=== PATIENT | male | born 1985 | race Caucasian/White ===

== ENCOUNTER 2023-07-26 08:52 | Outpatient (CLI) | payer OTHER ==
--- NOTE | 2023-07-26 10:20 | Sleep Patient Instructions ---
Sleep Center Visit Summary - Patient Visit Information Reason for Visit: Initial consult for evaluation of sleep disordered breathing and other sleep issues. - Patient Instructions Instructions Attached: Sleep Study Home Monitor Additional Instructions: You will be completing a sleep study, either an in-lab polysomnography (PSG) or home sleep study (HST). You will follow-up in the sleep care office after the sleep study is completed to hear the results and talk about therapy, if needed. You will be called by our office staff to schedule this appointment, but you may contact us with any questions. - Clinic Information Contact: [facility] [address] [place] [address] [email or web address] T: [phone]
--- NOTE | 2023-07-26 10:22 | SLEEP CARE CONSULTATION ---
Information from patient questionnaire entered by Bree He. I have reviewed and concur with the information entered by Bree He. This document represents the service I personally performed and the decisions made by me, Ryann Lennon ARNP. History of Present Illness Service Date and Time: 07/26/2023 0852 Reason for Visit: New patient Chief Complaint: reports: Unrefreshed sleep, Observed pauses in breathing Date of Onset: 5YRS Usual bedtime: 2030 Time it takes to fall asleep: 30MINS Snores at night: Yes Observed to quit breathing while asleep: Yes Number of times waking at night: 0 WAKES ME Toss, Turn, or Twitch while sleeping: Yes Recalls having dreams: No Usually gets out of bed at: 0715 Feels refreshed in the morning: No Morning headache: No Sleepy or fatigued during the day: Yes Ever fallen asleep while driving: No Takes day naps: No Dreams during day naps: No Prior sleep studies: No Additional HPI information: I had the pleasure of seeing PAULO MOULTON today regarding the possibility of him having a sleep disorder. His current complaints are unrefreshed sleep and observed pauses in breathing. He has trouble sleep since a teenager. He has a hard time getting to sleep and staying asleep. He did use sleeping aides then but weaned off of them. In the last 7 or so years his snoring is getting worse and he is also gasping for air. His is waking up frequently at night worried about his breathing and seeing him stop breathing. He tried a mouth appliance for snoring but he salivated a lot and then the device would be out of his mouth by morning. He feels pressure in his throat when laying on his back. The patient tells me that he normally goes to bed around 8:30 pm, and it takes him approximately 30 minutes to 3 hours to fall asleep. He and his are "hanging out" and watching TV or reading. He has been told that he snores loudly and irregularly at night. He has been observed to stop breathing in his sleep. His bed partner can still sleep in the same bed but infrequently has slept sep arately in the past. He tries to let her go to sleep before he goes to sleep. He can recall waking up on the average of 0 times during the night. Most of the time he wakes up because his is waking him up. He has not awakened for his own snoring, choking, and having to gasp for air. There is a lot of tossing and turning in his sleep. Generally there is no recollection of dreams. He usually wakes up at 0715 and does not feel refreshed. He usually does occasionally have a morning headache but it goes in cycles. During the day he complains of feeling sleepy and fatigued. He has never fallen asleep while driving nor has any accident due to sleepiness. He usually does not take naps during the day. There is somniloquy (sleep talking) but no somnambulism (sleep walking). He denies having impaired concentration during the day. 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 Patient is and lives in [place]. Have you smoked in the past 12 months: No Alcohol use: Yes Alcohol amount and frequency: NOT MUCH EVERY COUPLE WEEKS Caffeine use: Yes Caffeine amount and frequency: A FEW DAILY Family History Family history of sleep disordered breathing: Yes Family Hx Sleep Apnea: Mother: Snoring, Father: Snoring Allergies and Home Medications Known drug allergies: No Drug allergies reviewed: Yes Home medication list reviewed: Yes (none) Allergy and home medication list: Allergies No Known Drug Allergies Allergy (Verified 07/26/23 09:11) Home Medications No Known Home Medications 07/26/23 [History] Review of Systems Weight gain over past 5 years: 30 Weight loss over past 5 years: 10 Cardiovascular: denies: high blood pressure Neurological: reports: headaches, head trauma (concussion 20 yrs old, no deficits) Psychiatric: denies: anxiety, depression Ear/Nose/Throat: reports: wisdom teeth removed. denies: injury to nose, tonsillectomy Endocrine: reports: sluggishness Musculoskeletal: reports: muscle pain or cramping Immunologic: reports: sneezing Physical Exam Vital signs obtained and entered by: BREE Montiel MA Blood Pressure: 162/96 (right arm) Cuff size: long Heart Rate: 57 O2 Saturation: 100 Height: 6 ft Weight: 248 lb Body Mass Index: 33.6 BMI Classification: Obese Neck circumference: 16.75 Mouth and throat: narrow oropharynx Soft palate: long Hard palate: normal Uvula: normal Uvula visualization: 100% Mallampati Class I Tongue: enlarged in size with teeth youngblood on lateral edges Tonsils: 2+ Neck: normal w/o lymphadenopathy or thyromegaly Heart: regular rate and rhythm Lungs: clear bilaterally Impression and Plan 1. Suspected Obstructive Sleep Apnea-Hypopnea Syndrome, as suggested by a history of loud and irregular snoring, observed cessation of breath while asleep, gasping or choking in sleep, morning headache, unrefreshed sleep. Narrow oropharynx and obesity are common predisposing factors for obstructive sleep apnea-hypopnea syndrome. I recommend proceeding to polysomnography to confirm the diagnosis and to assess severity. If the patient has significant sleep disordered breathing, a manual CPAP titration study will also be performed to find the optimal treatment pressure. I informed the patient of what the sleep studies involve and after some discussion, obtained agreement to proceed. The pathophysiology of obstructive sleep apnea-hypopnea syndrome was discussed with the patient and health risks of cardiovascular and cerebrovascular disease if not treated. Risks of drowsy driving discussed in detail and patient advised to avoid long distance driving and to caul fat puller at the first sign of drowsiness. Patient agreed to plan. * Schedule polysomnography +- manual CPAP titration study and return in 1-2 weeks after the study to discuss result and initiate therapy. * Avoid long distance driving or driving when feeling sleepy. * Avoid alcohol, sedative and muscle relaxant around bedtime. * Attempt to lose weight. * Review instructions provided by trained office staff on how to prepare for the sleep study. * Return for follow-up after sleep study completed. Counseling Topics: Weight loss health impact Plan: PSG and follow up Visit Type: In Office Time Spent with Patient (minutes): 30 Provider Statement: I spent 100% of the Face to Face Visit with the patient with greater than 50% spent counseling the patient and coordination of care.
[2023-07-26 10:23] VITALS: BP 162/96; O2SAT 100
== END 2023-07-26 08:53 | disposition home or self-care (01) ==
LOC: SC 08:52
PROVIDERS: ATTEND Nurse Practitioner Family
DX: R06.81 Apnea, not elsewhere classified (principal); G47.8 Other sleep disorders; R06.83 Snoring; E66.9 Obesity, unspecified; Z68.33 Body mass index [BMI] 33.0-33.9, adult
CPT/HCPCS: 99203; 99212

== ENCOUNTER 2023-08-09 09:04 | Outpatient (CLI) | payer OTHER | END 2023-08-09 09:05 | disposition home or self-care (01) | LOC: SC 09:04 | PROVIDERS: ATTEND Nurse Practitioner Family | DX: G47.33 Obstructive sleep apnea (adult) (pediatric) (principal); R09.02 Hypoxemia; E66.9 Obesity, unspecified; Z68.33 Body mass index [BMI] 33.0-33.9, adult | CPT/HCPCS: 95806 ==

== ENCOUNTER 2023-08-16 10:51 | Outpatient (CLI) | payer OTHER ==
--- NOTE | 2023-08-16 10:26 | SLEEP CARE CONSULTATION ---
Information from patient questionnaire entered by Bree He. I have reviewed and concur with the information entered by Bree He. This document represents the service I personally performed and the decisions made by , Ryann Lennon ARNP. History of Present Illness Service Date and Time: 08/16/2023 1000 Initial Barlow Sleepiness Scale score: 11 (07/26/23) Current Barlow Sleepiness Scale score: 14 (08/16/23) Additional HPI information: PAULO MOULTON returns via video appointment today for follow up and results of the recently performed home sleep study. The sleep study done on 08/09/23 showed moderate obstructive sleep apnea with an average AHI of 24.5 and nicki oxygen saturation of 84%. I explained the pathophysiology behind obstructive sleep apnea. We then spent quite a bit of time discussing different treatment options. For mild obstructive sleep apnea, surgery and oral appliance are alternatives to nasal CPAP therapy but in moderate or severe cases, nasal CPAP is the most effective and reliable treatment. I reviewed the impact of weight changes on sleep apnea and strongly recommended losing weight. After some discussion, the patient opted to go with the nasal CPAP therapy. A manual titration study will be ordered to find optimal pressure with office adjustments. I explained how CPAP machine works and what to expect when using the machine. Using CPAP every night in order to get used to it was emphasized. Patient counseled not drink alcohol less than 4 hours before bedtime as it can increase snoring and apnea. Patient was cautioned about risks of drowsy driving until sleepiness symptoms resolve. Patient denies drowsy driving. Sleep Study - Results Type of Sleep Study: Home sleep study (COMPLETED 08/09/23) Prior sleep studies: No Polysomnography/Home Sleep Study results: Physician Impression: The quality of the study is good. The length of the study is adequate (> 240 minutes). Please also see the tabulated and graphic data. 1. Obstructive Sleep Apnea-Hypopnea (ICD-10 G47.33), moderate, with an AHI of 24.5/hr and nicki SaO2 of 84%. During the study, the patient had 191 apneas (191 obstructive, 0 central, 0 mixed) and 14 hypopneas. The longest episode lasted 78.0 seconds. The respiratory events occurred more frequently during supine sleep (supine AHI was 61.0 and non-supine, 12.27). 2. Hypoxemia (ICD-10 R09.02), mild, with the lowest oxygen saturation of 84 % and 4.5 minutes with SaO2 under 90%. Baseline oxygen saturation was normal (Average oxygen saturation was 95%). Allergies and Home Medications Known drug allergies: No Drug allergies reviewed: Yes Home medication list reviewed: Yes (no changes) Allergy and home medication list: Allergies No Known Drug Allergies Allergy (Verified 08/16/23 07:56) Review of Systems Review of systems same as previous: Yes (NO CHANGE) Physical Exam Vital signs obtained and entered by: BREE Montiel MA Height: 6 ft (08/16/23) Weight: 245 lb (08/16/23) Body Mass Index: 33.2 BMI Classification: Obese Impression and Plan 1. Obstructive Sleep Apnea-Hypopnea Syndrome, moderate, with lowest oxygen saturation of 84%. Obviously this is the cause of the patients symptoms of unrefreshed sleep, and excessive daytime sleepiness. As mentioned above, the patient will be started on nasal autoCPAP therapy. A manual titration study will be completed to find optimal treatment pressure with office adjustments. Compliance guidelines also reviewed. Because the apnea is more severe supine, I instructed to avoid sleeping supine using pillow positioning until able to start CPAP use. 2. Hypoxemia, mild, with a incki oxygen saturation of 84% and 4.5 minutes spent under 90%. The baseline oxygen saturation was normal with an average oxygen saturation of 95%. 3. Obesity, unspecified. Currently patients BMI is 33.2. Obesity increases the risk of apnea, CPAP pressure requirements and overall health risks especially cardiovascular and diabetes. Thus patient is advised to lose weight. * Titration study. * Attempt to lose weight. * Avoid alcohol consumption near bedtime. * Avoid supine sleep until using CPAP. * The patient is again cautioned about driving until sleepiness completely resolves. * Return after titration study for results and initiating therapy. Counseling Topics: Weight loss health impact Plan: Titration study and follow up Visit Type: Telehealth Video Video Type: [employer] Patient Location: Work Location of Provider: Office Patient agrees and consents to this telehealth visit type: Yes Patient agrees to have their insurance billed: Yes Time Spent with Patient (minutes): 20 Provider Statement: I spent 100% of the Telehealth Video Call with the patient with greater than 50% spent counseling the patient and coordination of care.
== END 2023-08-16 10:52 | disposition home or self-care (01) ==
LOC: SC 10:51
PROVIDERS: ATTEND Nurse Practitioner Family
DX: G47.33 Obstructive sleep apnea (adult) (pediatric) (principal); R09.02 Hypoxemia; E66.9 Obesity, unspecified; Z68.33 Body mass index [BMI] 33.0-33.9, adult